=== PATIENT | female | born 1975 | race Caucasian/White ===

== ENCOUNTER 2017-01-22 09:32 | Emergency (ER) | payer MEDICAID ==
[~2017-01-22] VITALS: Ht 157.5 cm; Wt 85800.0 kg
--- OUTSIDE RECORDS SUMMARY | 2017-01-22 09:46 | XMS REPORT | Continuity of Care Document ---
Author Author [facility] Organization [facility] Address Unknown Phone Unavailable Allergies Active Description Code Type Severity Reaction Onset Reported/Identified Relationship to Patient Clinical Status Yes Penicillins [id number] Drug Allergy Unknown N/A 11/29/2008 Yes PENICILLIN Drug Allergy N/A N/A 12/16/2011 Yes Penicillins 476 Drug Allergy N/A N/A 07/12/2013 Confirmed or Verified Yes Penicillins - CLASS Penicillins - C MED N/A unspecified 06/01/2014 Yes Ambien 9128 Drug Allergy N/A N/A 06/08/2014 Yes melatonin 5039 Drug Allergy N/A N/A 06/14/2014 Yes No known food allergies NO KNOWN FOOD ALLERG NF N/A N/A 06/14/2014 Yes trazodone 4610 Drug Allergy N/A N/A 06/14/2014 Medications Medication Packaging Start Date Stop Date Route Dosage Sig ClonazePAM 0.5 MG Oral Tab TABS 06/01/2014 06/29/2014 ORAL TABS Zolpidem Tartrate 5 MG Oral Tab TABS 06/04/2014 07/05/2014 ORAL TABS ClonazePAM 0.5 MG Oral Tab TABS 06/28/2014 07/29/2014 ORAL TABS ClonazePAM 0.5 MG Oral Tab TABS 08/03/2014 09/03/2014 ORAL TABS ClonazePAM 0.5 MG Oral Tab TABS 09/11/2014 10/12/2014 ORAL TABS Problems Date Dx Coded Attending Type Code Diagnosis Diagnosed By 03/13/2013 D 611.72 LUMP OR MASS IN BREAST 03/13/2013 D 625.8 FEM GENITAL SYMPTOMS NEC 03/13/2013 D 793.5 NONSP FIND- ORGANS 03/30/2013 D V76.12 OT SCREEN MAMMOGRAM 05/31/2013 LIDA NEWTON 244.9 HYPOTHYROIDISM NOS 09/05/2013 LIDA NEWTON D 244.9 HYPOTHYROIDISM NOS 05/19/2014 D 300.00 ANXIETY STATE NOS 06/07/2014 D 300.00 ANXIETY STATE NOS 06/07/2014 D 719.41 JOINT PAIN-SHLDER 06/07/2014 D 780.4 DIZZINESS AND GIDDINESS 06/08/2014 D 723.1 CERVICALGIA 06/08/2014 D 729.1 MYALGIA AND MYOSITIS NOS 06/08/2014 D 839.05 DISLOC 5TH CERV VERT-CL 06/12/2014 D 719.41 JOINT PAIN-SHLDER 06/12/2014 D 723.1 CERVICALGIA 06/12/2014 D 780.4 DIZZINESS AND GIDDINESS 06/12/2014 D 784.0 HEADACHE 06/12/2014 D V57.1 PHYSICAL THERAPY NEC 06/14/2014 D 276.8 HYPOPOTASSEMIA 06/14/2014 D 780.4 DIZZINESS AND GIDDINESS 06/14/2014 D 785.0 TACHYCARDIA NOS 06/14/2014 D 787.02 NAUSEA ALONE 06/15/2014 D 300.00 ANXIETY STATE NOS 06/15/2014 D 782.0 SKIN SENSATION DISTURB 06/15/2014 D 786.50 CHEST PAIN NOS 06/15/2014 D 787.01 NAUSEA WITH VOMITING 06/18/2014 D 300.00 ANXIETY STATE NOS 06/21/2014 D 784.0 HEADACHE 06/21/2014 D 787.02 NAUSEA ALONE 06/21/2014 RAINS DO, INNA D 719.41 JOINT PAIN-SHLDER 06/21/2014 RAINS DO, INNA D 723.1 CERVICALGIA 06/21/2014 RAINS DO, INNA D 780.4 DIZZINESS AND GIDDINESS 06/21/2014 RAINS DO, INNA D 784.0 HEADACHE 06/21/2014 RAINS DO, INNA D V57.1 PHYSICAL THERAPY NEC 06/22/2014 D 300.00 ANXIETY STATE NOS 06/22/2014 D 300.01 PANIC DIS W/O AGORAPHOB 06/22/2014 D 311 DEPRESSIVE DISORDER NEC 06/22/2014 D 787.02 NAUSEA ALONE 06/22/2014 D 298.9 PSYCHOSIS NOS 06/22/2014 D 787.02 NAUSEA ALONE 07/09/2014 Elvis FERGUSON, September E Other 238.71 ESSENTIAL THROMBOCYTHEMIA 07/09/2014 Elvis FERGUSON, September E Other 288.60 LEUKOCYTOSIS, UNSPECIFIED 07/28/2014 ANAIS MEDINA 787.02 NAUSEA ALONE 08/04/2014 ESTEVAN CAMPOS DO 276.51 DEHYDRATION 08/04/2014 ESTEVAN CAMPOS DO 276.8 HYPOPOTASSEMIA 08/04/2014 ESTEVAN CAMPOS DO 530.81 ESOPHAGEAL REFLUX 08/04/2014 ESTEVAN CAMPOS DO 558.9 NONINF GASTROENTERIT NEC 08/04/2014 ESTEVAN CAMPOS DO 787.03 VOMITING ALONE 08/04/2014 ESTEVAN CAMPOS DO 789.00 ABDOMINAL PAIN, UNSPECIF 08/08/2014 F 300.01 PANIC DISORDER WITHOUT AGORAPHOBIA Manda Milner 10/08/2014 MATTEO SAMUEL 238.71 ESSENT THROMBOCYTHEMIA 12/07/2014 ELVIS FERGUSON, BUD Cummings 238.71 ESSENT THROMBOCYTHEMIA 12/13/2014 F 799.9 OTHER UNKNOWN AND UNSPECIFIED CAUSE OF MORBIDITY OR MORTALITY Manda Milner 12/13/2014 F V71.09 NO DIAGNOSIS REPORTED AXIS III Manda Milner 03/01/2015 ESTEVAN CAMPOS DO 300.01 PANIC DIS W/O AGORAPHOB 03/01/2015 ESTEVAN CAMPOS DO 300.01 PANIC DIS W/O AGORAPHOB Procedures Code [place] [address] TRANSVAGINAL US, NON-OB LIDA NEWTON A 03/13/2013 14356 COMP SCREEN MAMMOGRAM ADD-ON ANNUM LIDA AVILA A 03/30/2013 G0202 SCREENINGMAMMOGRAPHYDIGITAL PETER AVILA, LIDA A 03/30/2013 55036 ROUTINE VENIPUNCTURE ANNUM [employer]ODUCTION WORKER, LIDA A 05/31/2013 43569 ASSAY THYROID STIM HORMONE ANNUM [employer]ODUCTION WORKER , LIDA A 05/31/2013 48960 ROUTINE VENIPUNCTURE FOSSUM [employer]ODUCTION WORKER, LIDA A 09/05/2013 78234 ASSAY THYROID STIM HORMONE ANNUM MARGARITA , LIDA A 09/05/2013 73888 ROUTINE VENIPUNCTURE LO CASE 05/19/2014 56913 URINALYSIS, NONAUTO W/SCOPE LO CASE 05/19/2014 35553 THER/PROPH/DIAG IV INF, INIT LO CASE L 05/19/2014 11761 TX/PRO/DX INJ NEW DRUG PRICILLA CHANDRA, LO L 05/19/2014 34663 EMERGENCY DEPT VISIT VERONICA CHANDRA, LO L 05/19/2014 66324 EMERGENCY DEPT VISIT VERONICA CORAZON, LO L 05/19/2014 J2060 ATIVAN INJECTION VERONICA CORAZON, LO L 05/19/2014 J2405 ONDANSETRON HCL INJECTION VERONICA CORAZON, LO L 05/19/2014 J7030 INFUSION, NS, 1000 CC WOMILES CHANDRA, LO L 05/19/2014 04604 ELECTROCARDIOGRAM, TRACING MARBIN CORAZON, RYDER L 06/07/2014 96744 THER/PROPH/DIAG IV INF, INIT MARBIN CORAZON, RYDER L 06/07/2014 01963 TX/PRO/DX INJ NEW DRUG PRICILLA ZAZUETA CORAZON, RYDER L 06/07/2014 39226 EMERGENCY DEPT VISIT MARBIN CORAZON, RYDER L 06/07/2014 44234 EMERGENCY DEPT VISIT MARBIN CORAZON, RYDER L 06/07/2014 J1885 KETOROLAC TROMETHAMINE INJ MARBIN CHANDRA, RYDER L 06/07/2014 J2405 ONDANSETRON HCL INJECTION MARBIN CHANDRA, RYDER L 06/07/2014 J7030 INFUSION, NS, 1000 CC MARBIN CHANDRA, RYDER L 06/07/2014 86021 CHEST X-RAY BETH MCKEEESTEVAN 06/08/2014 56287 X-RAY EXAM OF NECK [facility] MCKEE 06/08/2014 08724 THER/PROPH/DIAG INJ, SC/IM [facility] M[facility] ESTEVAN 06/08/2014 17310 EMERGENCY DEPT VISIT [place] GREYS[place] 06/08/2014 44743 EMERGENCY DEPT VISIT [place] ESTEVAN 06/08/2014 J1885 KETOROLAC TROMETHAMINE INJ [place] ESTEVAN 06/08/2014 86828 PT EVALUATION , INNA 06/08/2014 56224 MANUAL THERAPY , INNA 06/08/2014 47489 THERAPEUTIC EXERCISES , INNA 06/13/2014 46393 MANUAL THERAPY , INNA 06/13/2014 77043 ROUTINE VENIPUNCTURE MARBIN CORAZON, RYDER L 06/14/[address] HEAD/BRAIN W/O DYE RYDER CUEVA L 06/14/2014 00329 COMPREHEN METABOLIC PANEL RYDER CUEVA L 06/14/2014 60528 URINALYSIS, NONAUTO W/SCOPE RYDER CUEVA L 06/14/2014 81970 COMPLETE CBC W/AUTO DIFF WBC RYDER CUEVA L 06/14/2014 92943 RBC SED RATE, NONAUTOMATED RYDER CUEVA L 06/14/2014 03201 THER/PROPH/DIAG IV INF, INIT RYDER CUEVA L 06/14/2014 67674 TX/PRO/DX INJ NEW DRUG RYDER SALGADO L 06/14/2014 87168 EMERGENCY DEPT VISIT RYDER CUEVA L 06/14/2014 84543 EMERGENCY DEPT VISIT RYDER CUEVA L 06/14/2014 J1885 KETOROLAC TROMETHAMINE INJ RYDER CUEVA L 06/14/2014 J7030 INFUSION, NS, 1000 CC RYDER CUEVA L 06/14/2014 78156 ROUTINE VENIPUNCTURE CHRISTINESAUNDRA ESTEVAN MCKEE 06/15/2014 56379 METABOLIC PANEL TOTAL CA BETH MCKEE ESTEVAN Goel 06/15/2014 78215 COMPLETE CBC W/AUTO DIFF WBC CHRISTINEESTEVAN ARGUELLO DO 06/15/2014 04674 THER/PROPH/DIAG IV INF, INIT BETH MCKEEESTEVAN 06/15/2014 06058 TX/PRO/DX INJ NEW DRUG PRICILLA CHRISTINESAUNDRA ESTEVAN MCKEE 06/15/2014 92800 OBSERVATION CARE ESTEVAN CAMPOS DO 06/15/2014 53119 OBSERV/HOSP SAME DATE ESTEVAN CAMPOS DO 06/15/2014 29410 EMERGENCY DEPT VISIT ESTEVAN CAMPOS DO 06/15/2014 J2405 ONDANSETRON HCL INJECTION RYDER CUEVA L 06/15/2014 J7030 INFUSION, NS, 1000 CC MARBIN CORAZONRYDER L 06/15/2014 57624 EMERGENCY DEPT VISIT CAMACHOTHERESE AVILA JULIO Shawna 06/18/2014 48951 EMERGENCY DEPT VISIT JULIO STANTON 06/18/2014 25070 EMERGENCY DEPT VISIT MARBIN CORAZONRYDER L 06/21/2014 59323 EMERGENCY DEPT VISIT MARBIN PARYDER L 06/21/2014 56803 ULTRASOUND THERAPY PADMINIS DO, INNA 06/21/2014 92849 MANUAL THERAPY [facility] , INNA 06/21/2014 10316 ROUTINE VENIPUNCTURE VERONICA CHANDRA LO L 06/22/2014 95587 URINALYSIS NONAUTO W/O SCOPE WOMILES CHANDRA LO L 06/22/2014 10110 COMPLETE CBC W/AUTO DIFF WBC VERONICA CHANDRA LO L 06/22/2014 65571 EMERGENCY DEPT VISIT VERONICA CHANDRA LO L 06/22/2014 J2550 PROMETHAZINE HCL INJECTION ALEXCAAL , LO L 06/22/2014 93757 EMERGENCY DEPT VISIT VERONICA CHANDRA LO L 06/22/2014 70516 EMERGENCY DEPT VISIT VERONICA CHANDRA LO L 06/22/2014 58932 ROUTINE VENIPUNCTURE ANAIS LE P 07/28/2014 22399 COMPREHEN METABOLIC PANEL MIMIANAIS P 07/28/2014 19398 COMPLETE CBC W/AUTO DIFF WBC ANAIS LE P 07/28/2014 14745 EMERGENCY DEPT VISIT ANAIS LE P 07/28/2014 28959 EMERGENCY DEPT VISIT ANAIS LE P 07/28/2014 38624 ROUTINE VENIPUNCTURE ESTEVAN CAMPOS DO 08/04/2014 29231 X-RAY EXAM SERIES, ABDOMEN [facility] 08/04/2014 51009 COMPREHEN METABOLIC PANEL ESTEVAN CAMPOS DO 08/04/2014 71224 URINALYSIS, NONAUTO W/SCOPE ESTEVAN CAMPOS DO 08/04/2014 00763 URINE TEST ESTEVAN CAMPOS DO 08/04/2014 89761 ASSAY OF AMYLASE ESTEVAN CAMPOS DO 08/04/2014 28438 ASSAY OF LIPASE ESTEVAN CAMPOS DO 08/04/2014 96303 COMPLETE CBC W/AUTO DIFF WBC ESTEVAN CAMPOS DO 08/04/2014 40878 HELICOBACTER PYLORI ESETVAN CAMPOS DO 08/04/2014 94808 THER/PROPH/DIAG IV INF, INIT ESTEVAN CAMPOS DO 08/04/2014 87937 THER/PROPH/DIAG IV INF ESTEVAN LEE DO 08/04/2014 45685 TX/PRO/DX INJ NEW DRUG BETINAMARGARETTE ESTEVAN CAMPOS DO 08/04/2014 72569 EMERGENCY DEPT VISIT ESTEVAN CAMPOS DO 08/04/2014 J2405 ONDANSETRON HCL INJECTION ESTEVAN CAMPOS DO 08/04/2014 J2780 RANITIDINE HCL 25 MQ INJ ESTEVAN CAMPOS DO 08/04/2014 J7030 INFUSION, NS, 1000 CC ESTEVAN CAMPOS DO 08/04/2014 53158 ROUTINE VENIPUNCTURE [facility] MATTEO 10/08/2014 24243 COMPLETE CBC W/AUTO DIFF WBC VIV MATTEO 10/08/2014 60885 ROUTINE VENIPUNCTURE [facility] 12/07/2014 52347 COMPLETE CBC W/AUTO DIFF WBC VIV MATTEO 12/07/2014 85658 EMERGENCY DEPT VISIT ESTEVAN CAMPOS DO 03/01/2015 J2060 ATIVAN INJECTION ESTEVAN CAMPOS DO J 03/01/2015 53245 EMERGENCY DEPT VISIT ESTEVAN CAMPOS DO J 03/01/2015 Results Test Result Range CBC - 07/28/14 02:50 WBC 6.82 K/ul 3.7-9.9 Lymph % 44.4 % 7.6-58.5 Neut % 46.2 % 41.1-91.7 [place] % 9.2 % 0-13 Eos % 0.1 % 0-10 Baso % 0.1 % 0-7 RBC 4.36 10^6u 4.18-5.22 HGB 11.0 G/DL 11.7-16.7 HCT 34.1 % 39.0-47.1 MCV 78.2 FL 84-100 MCH 25.2 PG 26.9-32.9 MCHC 32.3 G/DL 31.5-36.0 RDW 15.3 % Platelet 384 K/ul 140-375 CMP - 07/28/14 03:02 Glucose 180 MG/DL 70-100 BUN 14 MG/DL 7.0-18.7 Creatinine 0.69 MG/DL 0.57-1.11 Sodium 137 MMOLL 136-145 Potassium 3.4 MEQ/L 3.5-5.1 Chloride 105 MEQ/L 98-107 CO2 22 MMOLL 22-29 Anion GAP 10 G/DL T. Protein 6.5 G/DL 6.4-8.3 Albumin 3.4 G/DL 3.5-5.0 T Bili 0.1 MG/DL 0.2-1.2 Alk Phos 49 U/L 40-150 AST 11 U/L 5.0-34.0 ALT 16 U/L 0-55 Calcium 8.6 MG/DL 8.4-10.5 Bun/Creat 20 RATIO Osmo Calculated 289 MOSM 280-300 EGFR > 60 MLMIN >=60 CMP - 08/04/14 06:58 Glucose 138 MG/DL 70-100 BUN 12 MG/DL 7.0-18.7 Creatinine 0.74 MG/DL 0.57-1.11 Sodium 140 MMOLL 136-145 Potassium 3.3 MEQ/L 3.5-5.1 Chloride 106 MEQ/L 98-107 CO2 24 MMOLL 22-29 Anion GAP 10 G/DL T. Protein 6.3 G/DL 6.4-8.3 Albumin 3.3 G/DL 3.5-5.0 T Bili 0.2 MG/DL 0.2-1.2 Alk Phos 43 U/L 40-150 AST 9 U/L 5.0-34.0 ALT 12 U/L 0-55 Calcium 8.7 MG/DL 8.4-10.5 Bun/Creat 16 RATIO Osmo Calculated 292 MOSM 280-300 EGFR > 60 MLMIN >=60 Amylase - 08/04/14 06:58 Amylase 50 U/L 25-125 Lipase - 08/04/14 06:58 Lipase 53 U/L 8-78 Urinalysis - 08/04/14 07:22 Color Yellow Yellow Urine Appearance Clear Clear Glucose NEG Negative Bilirubin Negative Negative Ketones Negative Negative Specific [place] 1.020 Blood Trace Negative pH 7.5 Protein Negative Negative Urobilinogen 0.2 EU/dl 0.2 Nitrite Negative Negative Leukocyte Negative Negative Urine WBC NONESEEN Urine RBC N0-2 Bacteria FEW Urine Epithelial Cells FEW Site CC CBC - 08/04/14 07:22 WBC 8.58 K/ul 3.7-9.9 Lymph % 38.3 % 7.6-58.5 Neut % 53.4 % 41.1-91.7 [place] % 8.3 % 0-13 Eos % 0.0 % 0-10 Baso % 0.0 % 0-7 RBC 4.31 10^6u 4.18-5.22 HGB 11.0 G/DL 11.7-16.7 HCT 34.6 % 39.0-47.1 MCV 80.3 FL 84-100 MCH 25.5 PG 26.9-32.9 MCHC 31.8 G/DL 31.5-36.0 RDW 16.5 % Platelet 368 K/ul 140-375 Urine - 08/04/14 07:23 Urine NEG Negative H Pylori Antibody IGM - 08/11/14 11:30 H Pylori Antibody IGM Negative Negative CBC - 12/07/14 16:39 WBC 10.16 K/ul 3.7-9.9 Lymph % 28.5 % 7.6-58.5 Neut % 66.0 % 41.1-91.7 [place] % 5.4 % 0-13 Eos % 0.0 % 0-10 Baso % 0.1 % 0-7 RBC 5.27 10^6u 4.18-5.22 HGB 14.1 G/DL 11.7-16.7 HCT 42.9 % 39.0-47.1 MCV 81.4 FL 84-100 MCH 26.8 PG 26.9-32.9 MCHC 32.9 G/DL 31.5-36.0 RDW 16.2 % Platelet 447 K/ul 140-375 CMP - 12/07/14 17:09 Glucose 147 MG/DL 70-100 BUN 12 MG/DL 7.0-18.7 Creatinine 0.82 MG/DL 0.57-1.11 Sodium 136 MMOLL 136-145 Potassium 3.6 MEQ/L 3.5-5.1 Chloride 102 MEQ/L 98-107 CO2 22 MMOLL 22-29 Anion GAP 12 G/DL T. Protein 7.4 G/DL 6.4-8.3 Albumin 3.9 G/DL 3.5-5.0 T Bili 0.3 MG/DL 0.2-1.2 Alk Phos 67 U/L 40-150 AST 11 U/L 5.0-34.0 ALT 7 U/L 0-55 Calcium 9.3 MG/DL 8.4-10.5 Bun/Creat 15 RATIO Osmo Calculated 284 MOSM 280-300 EGFR > 60 MLMIN >=60 Encounters ACCT No. Visit Date/Time Discharge Status Pt. Type Provider Facility Loc./Unit Complaint [id number] 07/09/2014 10:45:00 2014 00:01:00 DIS Outpatient Bud Flores MD [facility] [id number] 08/30/2014 11:00:00 2013 23:59:59 CLS Outpatient Matteo Oliveros [facility] [id number] 04/24/2013 13:00:00 2012 23:59:00 DIS Outpatient [facility] IMG.OC.US [id number] 03/30/2013 08:04:00 2012 23:59:59 CLS Outpatient [facility] MORE
[2017-01-22] MEDS ORDERED: GLYB5TAB6 PO (09:57)
[2017-01-22] MEDS ORDERED: LANS30CA14 PO (09:57)
[2017-01-22] MEDS ORDERED: ATN25T PO (09:57)
[2017-01-22] MEDS ORDERED: METR500T17 PO (09:57)
[2017-01-22] MEDS ORDERED: LVT.15T PO (09:57)
[2017-01-22] MEDS ORDERED: DULO60CA58 PO (09:57)
[2017-01-22] MEDS ORDERED: LORA10TA7 PO (09:57)
[2017-01-22] MEDS ORDERED: LSNP20T PO (09:57)
[2017-01-22] MEDS ORDERED: DULO30CA PO (09:57)
[2017-01-22] MEDS ORDERED: NORG1TAB72 PO (09:57)
[2017-01-22] MEDS ORDERED: LACT1CAP39 PO (09:59)
[2017-01-22] MEDS ORDERED: BIOT10002 PO (09:59)
[2017-01-22] MEDS ORDERED: FLUT16SP NS (09:59)
[2017-01-22] MEDS ORDERED: DIPH25TA29 PO (10:04)
[2017-01-22] MEDS ORDERED: TRIA1TAB18 PO (10:04)
[2017-01-22] MEDS ORDERED: LOPE2CAP29 PO (10:04)
[2017-01-22] MEDS ORDERED: CALC-719 PO (10:04)
[2017-01-22] MEDS ORDERED: CLON0.5T3 PO (10:04)
[2017-01-22] MEDS ORDERED: BISM262T16 PO (10:04)
[2017-01-22] MEDS ORDERED: AC500T PO (10:04)
[2017-01-22] MEDS ORDERED: ASPI1TAB22 PO (10:04)
[2017-01-22] MEDS ORDERED: ONDA8TAB6 PO (10:04)
[2017-01-22] MEDS ORDERED: PROMETHAZINE 25 MG/ML (PHENERGAN) 1 ML VIAL IM ONE (10:15)
--- NOTE | 2017-01-22 10:50 | NUR ---
Patient was given 25 mg of phenergam IM to the left gluteus per physician order.
[2017-01-22 10:53] VITALS: BP 141/86
== END 2017-01-22 10:55 | disposition home or self-care (01) ==
LOC: ED 09:41
DX: R11.0 Nausea (principal); T37.8X5A Adverse effect of other specified systemic anti-infectives and antiparasitics, initial encounter
CPT/HCPCS: 96372; 99282; J2550